=== PATIENT | male | born 1965 | race Caucasian/White ===

== ENCOUNTER 2016-11-08 01:28 | Emergency (ER) | payer SELFPAY ==
[~2016-11-08] VITALS: Ht 172.7 cm; Wt 66.2 kg
[2016-11-08 01:40] VITALS: BP 120/73
--- NOTE | 2016-11-08 01:59 | Emergency Room Report ---
History of Present Illness General Chief Complaint: Alcohol Intoxication Source: Patient Present Illness HPI Is a 51-year-old male who is an alcoholic. He presents with chief complaint abdominal pain. He said his abdominal pain his been ongoing for months. He's been to multiple hospitals and had lab work and CAT scans and were negative. Said that his abdominal pain was treated to drinking. He's been drinking heavily tonight. Was at a nearby drive through and worker called 911. Per police got there, he complaining of not feeling well in abdominal pain. So they called 911. Patient denies any fever or chills. No nauseous and vomiting. No diarrhea. Is a chronic problem for him. Denies any other complaint. Not on any medication. He recently moved from [place]. Allergies: Coded Allergies: PENICILLINS (Verified Allergy, Unknown, 11/08/16) PHENYTOIN (Verified Allergy, Unknown, 11/08/16) Patient History Past Medical History: see triage record, old chart reviewed Past Surgical History: other Pertinent Family History: none Social History: Reports: alcohol use Immunizations: other Reviewed Nursing Documentation: PMH: Agreed, PSxH: Agreed Nursing Documentation-PMH Past Medical History: No History, Except For Review of Systems Eye: Denies: blurred vision, eye pain ENT: Denies: ear pain, nose congestion, throat swelling Respiratory: Denies: cough, shortness of breath Cardiovascular: Denies: chest pain, palpitations Gastrointestinal: Reports: abdominal pain, nausea, Denies: diarrhea, vomiting Musculoskeletal: Denies: back pain, joint pain Skin: Denies: rash Neurological: Denies: headache, numbness Endocrine: Denies: increased thirst, increased urine Hematologic/Lymphatic: Denies: easy bruising All Other Systems: negative except mentioned in HPI Physical Exam Vital Signs Date Time Temp Pulse Resp B/P Pulse Ox O2 Delivery O2 Flow Rate FiO2 11/08/16 01:27 98.8 84 16 120/73 99 Room Air vitals normal Sp02 EP Interpretation: reviewed, normal General Appearance: well appearing, no apparent distress, alert, other - Intoxicated Head: normocephalic, atraumatic Eyes: bilateral eye EOMI, bilateral eye PERRL ENT: hearing grossly normal, normal pharynx Neck: full range of motion, supple, no meningismus Respiratory: chest non-tender, lungs clear, normal breath sounds Cardiovascular #1: regular rate, rhythm, no murmur Gastrointestinal: normal bowel sounds, no mass, no organomegaly, no bruit, non- distended, tenderness - Diffuse Musculoskeletal: back normal, normal range of motion Neurologic: alert, oriented x3 Psychiatric: mood/affect normal Skin: warm/dry Medical Decision Making Diagnostic Impression: Primary Impression: Acute alcoholic intoxication Qualified Codes: F10.920 - Alcohol use, unspecified with intoxication, uncomplicated Additional Impression: Abdominal pain Qualified Codes: R10.84 - Generalized abdominal pain ER Course Patient presents with abdominal pain. This most likely alcoholic gastritis. No evidence of acute abdomen. We'll discharge him once he is more clinically sober. patient slept the night. Now awake and walking without a problem. No slurring of speech. Eating drinking without a problem. We'll discharge home. Last Vital Signs Date Time Temp Pulse Resp B/P Pulse Ox O2 Delivery O2 Flow Rate FiO2 11/08/16 01:40 98.8 16 120/73 99 Room Air 11/08/16 01:27 84 Status: improved Disposition: HOME, SELF-CARE Condition: Stable Patient Instructions: Alcohol Intoxication, [id number] Additional Instructions: followup with your DrAndrei in 2-3 days. Abstain from alcohol. Return if worse. ELIZA STOCKTON M.D. Nov 08, 2016 01:59
[2016-11-08 06:09] VITALS: BP 109/65
[2016-11-08 06:11] VITALS: BP 109/65
== END 2016-11-08 06:12 | disposition home or self-care (01) ==
LOC: EDBD 01:28 → EMR 01:47
DX: F10.129 Alcohol abuse with intoxication, unspecified (principal); R10.9 Unspecified abdominal pain; Z88.0 Allergy status to penicillin; Z88.8 Allergy status to other drugs, medicaments and biological substances
CPT/HCPCS: 99282; 99284